=== PATIENT | female | born 1995 | race Caucasian/White ===

== ENCOUNTER 2016-09-26 22:33 | Emergency (ER) | payer OTHER ==
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
[2016-09-27 04:01] VITALS: BP 112/64
== END 2016-09-27 03:59 | disposition home or self-care (01) ==
LOC: ER 22:33
DX: S39.92XA Unspecified injury of lower back, initial encounter (principal); M54.5 Low back pain; M54.2 Cervicalgia; V49.40XA Driver injured in collision with unspecified motor vehicles in traffic accident, initial encounter; F17.200 Nicotine dependence, unspecified, uncomplicated
CPT/HCPCS: 99283